=== PATIENT | female | born 1965 | race Caucasian/White ===

== ENCOUNTER 2021-11-29 12:43 | Emergency (ER) | payer MEDICAID ==
[~2021-11-29] VITALS: Ht 154.9 cm; Wt 68.5 kg
[2021-11-29 12:54] VITALS: BP 143/84
--- NOTE | 2021-11-29 13:00 | NUR ---
BIBA RA60 "Burn/Blister on the roof of the mouth while drinking tea". The patient denies pain at this time. Will continue to monitor the patient.
--- NOTE | 2021-11-29 14:33 | NUR ---
Patient discharged to home in stable condition. Written and verbal after care instructions given. Patient verbalizes understanding of instruction.
== END 2021-11-29 14:34 | disposition home or self-care (01) ==
LOC: ER 12:45
DX: S00.522A Blister (nonthermal) of oral cavity, initial encounter (principal); X58.XXXA Exposure to other specified factors, initial encounter; Y93.89 Activity, other specified; Y92.89 Other specified places as the place of occurrence of the external cause; Y99.8 Other external cause status